=== PATIENT | female | born 1985 | race Caucasian/White ===

== ENCOUNTER 2023-05-28 19:40 | Emergency (ER) | payer MEDICAID ==
[~2023-05-28] VITALS: Ht 157.5 cm; Wt 81.6 kg
[2023-05-28 20:23] VITALS: PULSE 79; RESP 20; TEMP 98; O2SAT 98
--- NOTE | 2023-05-28 20:33 | NUR ---
pt went to lobby
[2023-05-28 20:57] LABS: BASOPHILS # (AUTO) 0.1 K/uL (0.00-0.22); BASOPHILS % (AUTO) 0.6 % (0.0-2.0); EOSINOPHILS # (AUTO) 0.3 K/uL (0-0.4); EOSINOPHILS % (AUTO) 3.2 % (0.0-4.0); HEMOGLOBIN 11.9 g/dL (12.0-16.0); LYMPHOCYTES # (AUTO) 3.5 K/uL (2.5-16.5); LYMPHOCYTES % (AUTO) 33.2 % (20.5-51.1); MEAN CORPUSCULAR HEMOGLOBIN 25 pg (27-31); MEAN CORPUSCULAR HGB CONC 33 g/dL (33-37); MEAN CORPUSCULAR VOLUME 76.6 fL (80-94); MONOCYTES # (AUTO) 0.7 K/uL (0.8-1.0); MONOCYTES % (AUTO) 6.2 % (1.7-9.3); NEUTROPHILS % (AUTO) 56.8 % (42.2-75.2); PLATELET COUNT (AUTO) 307 K/uL (140-450); RED CELL DISTRIBUTION WIDTH 14.3 % (11.6-13.7); WHITE BLOOD COUNT (AUTO) 10.6 K/uL (4.8-10.8)
[2023-05-28 21:15] LABS: ALBUMIN 3.7 g/dL (3.4-5.0); ANION GAP 14.3 (8-16); CARBON DIOXIDE 25.6 mmol/L (21-32); CREATININE 0.6 mg/dL (0.6-1.3); POTASSIUM 3.9 mmol/L (3.5-5.1); TOTAL BILIRUBIN 0.3 mg/dL (0.0-1.0)
[2023-05-28] MEDS ORDERED: KETOROLAC 30 MG/ML VIAL IVP ONE (22:50)
--- NOTE | 2023-05-28 23:00 | NUR ---
Pt BIB self with c/o abdominal pain started last night. Concious with AAOx4. Pt denies any PMHx and Allergies
--- NOTE | 2023-05-28 23:37 | NUR ---
PT TAKEN TO ER BED 6
--- NOTE | 2023-05-29 00:20 | NUR ---
US done on bedside
--- NOTE | 2023-05-29 02:53 | NUR ---
Pt on bed. Awake and oriented. Verbalized lesser feeling of pain.
[2023-05-29] MEDS ORDERED: FAMO-90 PO (03:03)
[2023-05-29] MEDS ORDERED: MAG355OR2 PO (03:03)
[2023-05-29] MEDS ORDERED: BEN10 PO (03:03)
[2023-05-29 03:26] VITALS: BP 122/82; PULSE 71; RESP 20; TEMP 98; O2SAT 98
--- NOTE | 2023-05-29 03:26 | NUR ---
Patient discharged. Written and verbal after care instructions given and explained. Patient alert, oriented and verbalized understanding of instructions. Ambulatory with steady gait. All questions addressed prior to discharge. ID band removed. Patient advised to follow up with PMD. Rx of Bentyl, Famotidine and Maalox given. Patient educated on indication of medication including possible reaction and side effects. Opportunity to ask questions provided and answered.
== END 2023-05-29 03:26 | disposition home or self-care (01) ==
LOC: MED 19:40
DX: K76.0 Fatty (change of) liver, not elsewhere classified (principal); K29.70 Gastritis, unspecified, without bleeding; R74.01 Elevation of levels of liver transaminase levels; Z79.899 Other long term (current) drug therapy
CPT/HCPCS: 36415; 76705; 80053; 81002; 81025; 83690; 85025; 96374; 99285; J1885; Q0092